=== PATIENT | male | born 1985 | race Caucasian/White ===

== ENCOUNTER 2017-04-23 17:20 | Emergency (ER) | payer MEDICAID ==
--- NOTE | 2017-04-28 07:30 | ER ---
ADMIT: 04/23/2017 RM/LOC: ER [facility] MR#: [id number] [id number] [place], [place] [address] ALISIA GARCIA [address] [address] Emergency Room Report SEX: M AGE: 31 : 1985 DATE: 04/23/2017 CHIEF COMPLAINT: Back pain and foot pain. HISTORY OF PRESENT ILLNESS: The patient is a 31-year-old male, states he is new to the area from [place] and had some trouble getting his Medicaid switched over, and he is coming in because he is having pain in his back. He has a long history of back pain. He states he has had a bulging disc before. He does have a history of sciatica and states he is having some pain that goes into his buttock and into his left lateral thigh. He denies any recent injury. He denies any loss of bowel or bladder function or any true weakness in the leg. He also states he is having pain in his right foot, which he had from an injury many years ago, which he has been evaluated for. He states that he has been told he needs to see a tc operator for surgery to try to fix an old fracture. He denies any fevers, chills, nausea, or vomiting. 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 MEDICATIONS: States he is supposed to be on: 1. Lyrica. 2. Soma. 3. Klonopin. Says he has been off them for a few weeks now. ALLERGIES: NONE. SOCIAL HISTORY: Smokes half pack a day. Denies any drug or alcohol use. PHYSICAL EXAMINATION: VITAL SIGNS: Blood pressure 136/90, pulse 101, respirations 16, temperature 98.8, and sats 99% on room air. HEENT: Head is atraumatic. GENERAL: The patient is alert and oriented, in no distress. HEART: Regular rate and rhythm. LUNGS: Clear to auscultation. ABDOMEN: Soft. EXTREMITIES: Examination of the patient's lower extremities reveals he has good range of motion. Sensation is intact. SKIN: No skin lesions or rashes are noted. He has equal reflexes bilaterally. ADMIT: 04/23/2017 RM/LOC: ER [facility] MR#: [id number] [address] [address] ALISIA GARCIA [address] [place] [address] Emergency Room Report SEX: M AGE: 31 : 1985 EMERGENCY DEPARTMENT COURSE: I discussed with the patient that I am not willing to fill his Soma or chronic pain medications here. He states he does have his Medicaid now, and he is told he needs to follow up with continuation of his chronic pain medications. As he is reporting some symptoms consistent with sciatica without any weakness, I did give him a shot of Toradol 30 mg IM here. I will place him on a short course of prednisone and give a prescription for Flexeril. He is given city call for followup and told to return to the ER for any worsening symptoms. DIAGNOSES: 1. Chronic back pain. 2. Chronic right foot pain. Matthias Allison MD/ sal JOB #: [id number] CC: Matthias Allison MD, Attending Physician Mine Francois MD, Family Physician
== END 2017-04-23 18:28 | disposition home or self-care (01) ==
LOC: ER 17:20
DX: G89.29 Other chronic pain (principal); M79.671 Pain in right foot; M54.5 Low back pain; F17.210 Nicotine dependence, cigarettes, uncomplicated; F41.9 Anxiety disorder, unspecified; Z79.899 Other long term (current) drug therapy

== ENCOUNTER 2017-05-10 11:03 | Emergency (ER) | payer MEDICAID ==
--- NOTE | 2017-05-16 14:44 | ER ---
ADMIT: 05/10/2017 RM/LOC: ER [facility] MR#: [id number] [address] [facility] [address] ALISIA GARCIA [address], [place] [address] Emergency Room Report SEX: M AGE: 31 : 1985 DATE: 05/10/2017 CHIEF COMPLAINT: Foot pain. HISTORY OF PRESENT ILLNESS: This is a 31-year-old, who missed a couple steps and twisted his foot. He does have a known old fracture of his right fifth metatarsal. X-ray was done, it does seem to be, there is an acute on chronic fracture. He already has a walking boot. I told him to continue to wear that. I gave him Orthopedics name and number to follow up with this week, prescribed [place] 5/325, dispensed 20 tablets to him. Told him to ice, elevate it, activity as tolerated. CLINICAL IMPRESSION: Acute on chronic fracture of the fifth metatarsal. HUGO Desai / Eddi Gutiérrez MD / sal JOB #: [id number] CC: Eddi Gutiérrez MD, Attending Physician Matthias Avila MD, Family Physician
== END 2017-05-10 13:08 | disposition home or self-care (01) ==
LOC: ER 11:03
DX: S92.351A Displaced fracture of fifth metatarsal bone, right foot, initial encounter for closed fracture (principal); F17.210 Nicotine dependence, cigarettes, uncomplicated; Z87.81 Personal history of (healed) traumatic fracture; Z79.899 Other long term (current) drug therapy; W10.9XXA Fall (on) (from) unspecified stairs and steps, initial encounter